=== PATIENT | female | born 1975 | race Asian ===

== ENCOUNTER → 2016-04-28 07:40 | Outpatient (CLI) | payer BC ==
[2012-12-07 09:36] VITALS: BMI 26.0
[~2016-04-28 07:40] MED LIST: CALTRATE-600600 MG PO; LEVOTHROID100 MCG PO; VITAMIN D250000 UNIT PO
== END | disposition home or self-care (01) ==
LOC: D.US 07:40
DX: R10.9 Unspecified abdominal pain (principal)

== ENCOUNTER → 2016-07-24 15:08 | Outpatient (CLI) | payer MEDICAID ==
[2012-12-07 09:36] VITALS: BMI 26.0
== END | disposition home or self-care (01) ==
LOC: D.CT 10:30
DX: C73 Malignant neoplasm of thyroid gland (principal)

== ENCOUNTER 2016-10-10 14:38 | Emergency (ER) | payer OTHER ==
[2012-12-07 09:36] VITALS: BMI 26.0
== END 2016-10-10 15:56 | disposition home or self-care (01) ==
LOC: D.ER 14:38
DX: J06.9 Acute upper respiratory infection, unspecified (principal); R59.1 Generalized enlarged lymph nodes; Z85.850 Personal history of malignant neoplasm of thyroid; R51 Headache; J02.9 Acute pharyngitis, unspecified

== ENCOUNTER 2019-05-31 01:07 | Emergency (ER) | payer OTHER ==
[~2019-05-31] VITALS: Ht 154.9 cm; Wt 70.5 kg
[2019-05-31 01:12] VITALS: Ht 154.9 cm; Wt 70.5 kg
[2019-05-31] MEDS ORDERED: PROTONIX40 MG PO (01:15)
[2019-05-31] MEDS ORDERED: HYDROCODON-ACE1 EAC2 PO (01:31)
[2019-05-31] MEDS ORDERED: CLEOCIN HCL300 MG PO (01:32)
[2019-05-31 02:26] VITALS: BP 152/89
== END 2019-05-31 02:27 | disposition home or self-care (01) ==
LOC: D.ER 01:07
DX: K08.89 Other specified disorders of teeth and supporting structures (principal); E07.9 Disorder of thyroid, unspecified; K21.9 Gastro-esophageal reflux disease without esophagitis